=== PATIENT | female | born 1990 | race Caucasian/White ===

== ENCOUNTER 2016-02-20 15:30 | Outpatient (RCR) | payer BC, MEDICAID ==
[~2016-02-20 15:30] MED LIST: CLINDAMYCIN PO; IRON FERROUS S325 MG PO
== END 2016-03-04 | disposition still patient (30) ==
LOC: MKS.ESL.PT
DX: G11.4 Hereditary spastic paraplegia (principal)

== ENCOUNTER 2016-05-28 15:30 | Outpatient (RCR) | payer BC, MEDICAID | END 2016-06-03 | disposition home or self-care (01) | LOC: MKS.ESL.PT | DX: G80.0 Spastic quadriplegic cerebral palsy (principal) ==

== ENCOUNTER 2016-12-01 15:30 | Outpatient (RCR) | payer BC, MEDICAID | END 2016-12-02 | disposition still patient (30) | LOC: MKS.ESL.PT | DX: G80.0 Spastic quadriplegic cerebral palsy (principal); M25.552 Pain in left hip ==

== ENCOUNTER 2017-02-18 15:30 | Outpatient (RCR) | payer BC, MEDICAID | END 2017-03-03 | LOC: MKS.ESL.PT | DX: G82.50 Quadriplegia, unspecified (principal) ==

== ENCOUNTER 2017-05-27 16:15 | Outpatient (RCR) | payer BC, MEDICAID | END 2017-06-02 | disposition home or self-care (01) | LOC: MKS.ESL.PT | DX: G80.0 Spastic quadriplegic cerebral palsy (principal) ==

== ENCOUNTER 2017-08-31 16:15 | Outpatient (RCR) | payer BC, MEDICAID | END 2017-09-01 | disposition home or self-care (01) | LOC: MKS.ESL.PT | DX: G80.0 Spastic quadriplegic cerebral palsy (principal) ==

== ENCOUNTER 2017-11-30 16:15 | Outpatient (RCR) | payer BC, MEDICAID | END 2017-12-01 | disposition home or self-care (01) | LOC: MKS.ESL.PT | DX: G80.0 Spastic quadriplegic cerebral palsy (principal) ==

== ENCOUNTER 2018-02-24 16:15 | Outpatient (RCR) | payer BC, MEDICAID | END 2018-03-02 | disposition home or self-care (01) | LOC: MKS.ESL.PT | DX: G80.0 Spastic quadriplegic cerebral palsy (principal) ==

== ENCOUNTER 2018-05-31 16:15 | Outpatient (RCR) | payer BC, MEDICAID | END 2018-06-01 | disposition home or self-care (01) | LOC: MKS.ESL.PT | DX: G80.0 Spastic quadriplegic cerebral palsy (principal) ==

== ENCOUNTER 2018-08-30 16:15 | Outpatient (RCR) | payer BC, MEDICAID | END 2018-08-31 | disposition home or self-care (01) | LOC: MKS.ESL.PT | DX: G80.0 Spastic quadriplegic cerebral palsy (principal) ==

== ENCOUNTER 2018-11-03 11:15 | Outpatient (RCR) | payer BC, MEDICAID | END 2018-11-04 09:56 | disposition home or self-care (01) | LOC: MKS.ESL.PT 11:15 | DX: G80.0 Spastic quadriplegic cerebral palsy (principal) ==

== ENCOUNTER → 2019-02-02 | Outpatient (RCR) | payer BC, MEDICAID | END | disposition home or self-care (01) | LOC: MKS.ESL.PT | DX: G80.0 Spastic quadriplegic cerebral palsy (principal) ==

== ENCOUNTER 2019-05-18 16:15 | Outpatient (RCR) | payer MEDICAID | END 2019-08-07 | disposition home or self-care (01) | LOC: MKS.ESL.PT | DX: G80.0 Spastic quadriplegic cerebral palsy (principal) ==

== ENCOUNTER 2019-10-31 13:30 | Outpatient (RCR) | payer MEDICAID | END 2019-11-06 | disposition home or self-care (01) | LOC: MKS.ESL.PT | DX: G80.0 Spastic quadriplegic cerebral palsy (principal); M41.86 Other forms of scoliosis, lumbar region ==

== ENCOUNTER 2020-01-30 13:30 | Outpatient (RCR) | payer MEDICAID | END 2020-02-05 | disposition home or self-care (01) | LOC: MKS.ESL.PT | DX: Z51.89 Encounter for other specified aftercare (principal); M41.47 Neuromuscular scoliosis, lumbosacral region; G80.0 Spastic quadriplegic cerebral palsy ==

== ENCOUNTER 2020-02-13 13:30 | Outpatient (RCR) | payer MEDICAID | END 2020-03-04 | disposition home or self-care (01) | LOC: MKS.ESL.PT | DX: G80.0 Spastic quadriplegic cerebral palsy (principal); M41.9 Scoliosis, unspecified ==

== ENCOUNTER 2020-05-28 13:30 | Outpatient (RCR) | payer MEDICAID | END 2020-05-29 14:51 | disposition home or self-care (01) | LOC: MKS.ESL.PT 13:30 | DX: Z51.89 Encounter for other specified aftercare (principal); G80.0 Spastic quadriplegic cerebral palsy; M41.86 Other forms of scoliosis, lumbar region ==

== ENCOUNTER 2020-08-22 13:30 | Outpatient (RCR) | payer MEDICAID | END 2020-08-27 | disposition home or self-care (01) | LOC: MKS.ESL.PT | DX: Z51.89 Encounter for other specified aftercare (principal); G80.0 Spastic quadriplegic cerebral palsy; M41.86 Other forms of scoliosis, lumbar region ==

== ENCOUNTER 2020-11-28 13:30 | Outpatient (RCR) | payer MEDICAID | END 2020-12-02 11:40 | disposition home or self-care (01) | LOC: MKS.ESL.PT 13:30 | DX: G80.0 Spastic quadriplegic cerebral palsy (principal); M41.9 Scoliosis, unspecified ==

== ENCOUNTER 2021-02-25 13:30 | Outpatient (RCR) | payer MEDICARE, MEDICAID | END 2021-02-28 | disposition home or self-care (01) | LOC: MKS.ESL.PT | DX: G80.0 Spastic quadriplegic cerebral palsy (principal) ==

== ENCOUNTER 2021-04-24 13:30 | Outpatient (RCR) | payer MEDICARE, MEDICAID | END 2021-04-28 | LOC: MKS.ESL.PT | DX: G80.0 Spastic quadriplegic cerebral palsy (principal) ==

== ENCOUNTER → 2021-05-29 | Outpatient (RCR) | payer MEDICARE, MEDICAID | END | disposition home or self-care (01) | LOC: MKS.ESL.PT | DX: G80.0 Spastic quadriplegic cerebral palsy (principal) ==

== ENCOUNTER 2021-06-26 13:00 | Outpatient (RCR) | payer MEDICARE, MEDICAID | END 2021-06-28 | disposition home or self-care (01) | LOC: MKS.ESL.PT | DX: G80.0 Spastic quadriplegic cerebral palsy (principal) ==

== ENCOUNTER → 2021-07-29 | Outpatient (RCR) | payer MEDICARE, MEDICAID | END | disposition still patient (30) | LOC: MKS.ESL.PT | DX: Z51.89 Encounter for other specified aftercare (principal); G80.0 Spastic quadriplegic cerebral palsy ==

== ENCOUNTER → 2021-08-28 | Outpatient (RCR) | payer MEDICARE, MEDICAID | END | disposition still patient (30) | LOC: MKS.ESL.PT → WSPT 08-08 11:00 → MKS.ESL.PT 08-12 13:00 | DX: G80.0 Spastic quadriplegic cerebral palsy (principal) ==

== ENCOUNTER 2021-09-23 13:00 | Outpatient (RCR) | payer MEDICARE, MEDICAID | END 2021-09-28 | disposition home or self-care (01) | LOC: MKS.ESL.PT | DX: Z51.89 Encounter for other specified aftercare (principal); G80.0 Spastic quadriplegic cerebral palsy; M41.86 Other forms of scoliosis, lumbar region ==

== ENCOUNTER → 2021-10-22 | Outpatient (CLI) | payer MEDICARE, MEDICAID | LOC: MHCPAIN 15:55 | DX: G80.0 Spastic quadriplegic cerebral palsy (principal); G82.50 Quadriplegia, unspecified | CPT/HCPCS: G0463 ==

== ENCOUNTER 2021-10-28 13:00 | Outpatient (RCR) | payer MEDICARE, MEDICAID | END 2021-10-29 | disposition home or self-care (01) | LOC: MKS.ESL.PT | DX: Z51.89 Encounter for other specified aftercare (principal); G80.0 Spastic quadriplegic cerebral palsy; M41.9 Scoliosis, unspecified ==

== ENCOUNTER 2021-12-25 11:15 | Outpatient (RCR) | payer MEDICARE, MEDICAID | END 2021-12-29 | disposition home or self-care (01) | LOC: MKS.ESL.PT | DX: Z51.89 Encounter for other specified aftercare (principal); G80.0 Spastic quadriplegic cerebral palsy ==

== ENCOUNTER 2022-05-25 15:00 | Outpatient (RCR) | payer MEDICARE, MEDICAID | END 2022-05-29 | disposition home or self-care (01) | LOC: WSPT | DX: Z51.89 Encounter for other specified aftercare (principal); G80.0 Spastic quadriplegic cerebral palsy ==

== ENCOUNTER 2022-05-27 14:39 | Outpatient (RCR) | payer MEDICARE, MEDICAID | END 2022-05-29 | disposition home or self-care (01) | LOC: MKS.ESL.OT | DX: G80.0 Spastic quadriplegic cerebral palsy (principal) ==

== ENCOUNTER 2022-06-26 15:00 | Outpatient (RCR) | payer MEDICARE, MEDICAID | END 2022-06-28 | disposition home or self-care (01) | LOC: WSPT | DX: Z51.89 Encounter for other specified aftercare (principal); G80.0 Spastic quadriplegic cerebral palsy; M41.9 Scoliosis, unspecified; M54.50 Low back pain, unspecified ==

== ENCOUNTER 2022-10-28 15:00 | Outpatient (RCR) | payer MEDICARE, MEDICAID | END 2022-10-29 | disposition home or self-care (01) | LOC: WSPT | DX: Z51.89 Encounter for other specified aftercare (principal); G80.0 Spastic quadriplegic cerebral palsy; M41.9 Scoliosis, unspecified; M54.50 Low back pain, unspecified ==

== ENCOUNTER → 2022-10-29 | Outpatient (RCR) | payer MEDICARE, MEDICAID | END | disposition home or self-care (01) | LOC: MKS.ESL.OT | DX: G80.9 Cerebral palsy, unspecified (principal) ==

== ENCOUNTER 2022-11-24 15:15 | Outpatient (RCR) | payer MEDICARE, MEDICAID | END 2022-11-28 | disposition home or self-care (01) | LOC: MKS.ESL.PT | DX: G80.9 Cerebral palsy, unspecified (principal) ==

== ENCOUNTER 2022-11-26 14:30 | Outpatient (RCR) | payer MEDICARE, MEDICAID | END 2022-11-28 | LOC: MKS.ESL.PT | DX: G80.0 Spastic quadriplegic cerebral palsy (principal) ==

== ENCOUNTER → 2023-01-28 | Outpatient (RCR) | payer MEDICARE, MEDICAID | END | disposition home or self-care (01) | LOC: MKS.ESL.PT → MKS.ESL.OT 01-11 15:30 → MKS.ESL.PT 01-12 15:15 → MKS.ESL.OT 01-18 15:30 → MKS.ESL.PT 01-26 15:15 | DX: G80.9 Cerebral palsy, unspecified (principal) ==

== ENCOUNTER 2023-02-25 14:30 | Outpatient (RCR) | payer MEDICARE, MEDICAID | END 2023-02-28 | disposition home or self-care (01) | LOC: MKS.ESL.PT | DX: G80.9 Cerebral palsy, unspecified (principal); M41.9 Scoliosis, unspecified ==

== ENCOUNTER → 2023-03-29 | Outpatient (CLI) | payer MEDICARE, MEDICAID ==
[~2023-03-29] MED LIST changes: +Ethyl Chloride Topical 200 (3 to 7 second) Sprays/103 ML BOTTLE TP ONE; +NS 10 ML IV ONE
== END ==
LOC: MHCPAIN 13:23
DX: G80.0 Spastic quadriplegic cerebral palsy (principal); G80.9 Cerebral palsy, unspecified
CPT/HCPCS: J0585

== ENCOUNTER 2023-03-30 10:30 | Outpatient (RCR) | payer MEDICARE, MEDICAID ==
[~2023-03-30 10:30] MED LIST changes: -Ethyl Chloride Topical 200 (3 to 7 second) Sprays/103 ML BOTTLE TP ONE; -NS 10 ML IV ONE
== END 2023-03-31 | disposition home or self-care (01) ==
LOC: MKS.ESL.PT
DX: G80.9 Cerebral palsy, unspecified (principal)
CPT/HCPCS: J0585

== ENCOUNTER → 2023-04-29 | Outpatient (RCR) | payer MEDICARE, MEDICAID | END | disposition home or self-care (01) | LOC: MKS.ESL.PT → MKS.ESL.OT 04-05 15:30 → MKS.ESL.PT 04-06 10:30 → MKS.ESL.OT 04-19 15:30 → MKS.ESL.PT 04-20 10:30 | DX: G80.9 Cerebral palsy, unspecified (principal) ==

== ENCOUNTER → 2023-05-10 | Outpatient (CLI) | payer MEDICARE, MEDICAID | LOC: MHCPAIN 14:06 | DX: G80.0 Spastic quadriplegic cerebral palsy (principal); G80.9 Cerebral palsy, unspecified | CPT/HCPCS: G0463 ==

== ENCOUNTER 2023-05-27 10:45 | Outpatient (RCR) | payer MEDICARE, MEDICAID | END 2023-05-30 | disposition home or self-care (01) | LOC: MKS.ESL.PT | DX: G80.9 Cerebral palsy, unspecified (principal) ==

== ENCOUNTER → 2023-06-28 | Outpatient (CLI) | payer MEDICARE, MEDICAID ==
[~2023-06-28] MED LIST changes: +Ethyl Chloride Topical 200 (3 to 7 second) Sprays/103 ML BOTTLE TP ONE; +NS 0 ML IV ONE
== END ==
LOC: MHCPAIN 13:18
DX: G80.0 Spastic quadriplegic cerebral palsy (principal); G80.9 Cerebral palsy, unspecified
CPT/HCPCS: J0585

== ENCOUNTER 2023-08-26 14:00 | Outpatient (RCR) | payer MEDICARE, MEDICAID ==
[~2023-08-26 14:00] MED LIST changes: -Ethyl Chloride Topical 200 (3 to 7 second) Sprays/103 ML BOTTLE TP ONE; -NS 0 ML IV ONE
== END 2023-08-29 | disposition home or self-care (01) ==
LOC: MKS.ESL.PT
DX: G80.9 Cerebral palsy, unspecified (principal)

== ENCOUNTER 2023-09-28 13:45 | Outpatient (RCR) | payer MEDICARE, MEDICAID | END 2023-09-29 | LOC: MKS.ESL.PT | DX: G80.9 Cerebral palsy, unspecified (principal) ==

== ENCOUNTER → 2023-09-29 | Outpatient (CLI) | payer MEDICARE, MEDICAID ==
[~2023-09-29] MED LIST changes: +NS 10 ML IV ONE
== END ==
LOC: MHCPAIN 12:44
DX: G80.0 Spastic quadriplegic cerebral palsy (principal)
CPT/HCPCS: J0585

== ENCOUNTER 2023-11-25 14:00 | Outpatient (RCR) | payer MEDICARE, MEDICAID ==
[~2023-11-25 14:00] MED LIST changes: -NS 10 ML IV ONE
== END 2023-11-29 | disposition home or self-care (01) ==
LOC: MKS.ESL.PT
DX: G80.9 Cerebral palsy, unspecified (principal)

== ENCOUNTER 2023-11-30 13:54 | Outpatient (RCR) | payer MEDICARE, MEDICAID | END 2023-12-03 10:09 | LOC: MKS.ESL.PT 13:54 | DX: G80.9 Cerebral palsy, unspecified (principal) ==